=== PATIENT | female | born 1960 | race Caucasian/White ===

== ENCOUNTER 2022-08-18 13:31 | Outpatient (CLI) | payer BC, SELFPAY ==
--- NOTE | 2022-08-18 13:45 | MR_ITS ---
[address] [address] Phone:?[phone] Fax:?[phone] Referring Physician Information: Danielle Glez M.D. [address] [facility] [address] Phone:?[phone] Fax:?[phone] Patient:Rosie Mina D.O.B:?1960 Sex:?Female Phone:?[phone] [facility] MRN:?[id number] Exam Date:?08/18/2022 ? EXAM: MRI of the RIGHT KNEE, without contrast CLINICAL INFORMATION: Female, 61 years old, with right knee pain. INDICATION: Evaluate knee pain. PRIOR SURGERY: None reported. PLAIN FILMS: None available. COMPARISONS: No prior MRIs available. TECHNICAL INFORMATION: Using a 1.5T MR scanner and a localizing surface coil: sagittals: PD, PDFS coronals: PD, T2FS axials: PD, PDFS SEDATION: None CONTRAST: None FINDINGS: Knee joint: Effusion: Moderate right knee effusion, with synovitis. Popliteal cyst: None. Loose bodies: Multiple (approximately 5) ossific intra-articular bodies are visualized throughout the knee joint, largest of which is located anteriorly near the intercondylar notch measuring 1.3 x 0.6 x 0.9 cm (coronal PD series 7 image 15 and sagittal PD series 5 image 14). Subcutaneous and extra-articular soft tissues: Unremarkable. Ligaments: ACL: Intact ACL anteromedial and posterolateral bundles, without sprain or tear. PCL: Intact PCL, without acute or chronic injury. MCL: Intact MCL superficial and deep layers, without injury. LCL: Intact LCL, without injury. Posterolateral corner: No posterolateral corner soft tissue injury. Popliteus, biceps femoris, iliotibial band, popliteofibular ligament and lateral gastrocnemius are intact. Posteromedial corner: Mild semimembranosus tendinopathy, without tear. Pes anserine tendons and posterior oblique ligament are without injury, tendinopathy or bursitis. Extensor mechanism: Patellar tendon: Intact, without tendinopathy. Quadriceps tendon: Intact, without tendinopathy. Retinacula: Medial and lateral retinacula are intact. Fat pads: Unremarkable infrapatellar Hoffa's, quadriceps and prefemoral fat pads. Medial compartment: Medial meniscus: No articular surface, meniscosynovial junction or root tear. No displacement, extrusion or parameniscal cyst. Medial femoral condyle & tibial plateau: Minimal signal heterogeneity, surface irregularity, and thinning of the articular cartilage without full-thickness chondral loss or reactive osseous changes. Lateral compartment: Lateral meniscus: No articular surface, meniscosynovial junction or root tear. No displacement, extrusion or parameniscal cyst. Lateral femoral condyle: No chondromalacia or osteochondral abnormality. Lateral tibial plateau: Approximately 1.1 x 0.8 cm area of grade II/III chondromalacia of the central aspect of the lateral tibial plateau, without reactive osseous changes (sagittal PD series 5 image 12 and coronal STIR series 8 image 20). Patellofemoral joint: Patella: Generalized grade III/IV chondromalacia of the patella, with moderate marginal osteophytosis and mild reactive osseous changes. Trochlea: Generalized grade III/IV chondromalacia of the lateral facet and central sulcus of the trochlea, with moderate marginal osteophytosis and mild reactive osseous changes. Proximal tibiofibular joint: Unremarkable, without evidence of ligament sprain injury, joint effusion or adjacent marrow edema. Bones: No stress/occult fractures or other marrow edema/pathology. IMPRESSION: 1. Moderate-advanced osteoarthritis of the patellofemoral compartment. 2. Moderate knee joint effusion with multiple (approximately 5) ossific intra- articular bodies, the largest of which is located anteriorly near the intercondylar notch measuring 1.3 x 0.6 x 0.9 cm. 3. Medium-sized area of grade II/III chondromalacia of the lateral tibial plateau. 4. Mild semimembranosus tendinopathy, without tear. 5. No cruciate or collateral ligament sprain/tear. 6. No medial or lateral meniscal tear. 7. No significant osteochondral abnormality of the medial compartment. BC Electronically signed on 08/19/2022 7:12:00 AM by Jose Lacy M.D.
== END 2022-08-18 13:32 | disposition home or self-care (01) ==
LOC: MRI 13:35
PROVIDERS: PCP Family Medicine; Visit Provider Family Medicine
DX: M25.561 Pain in right knee (principal); M17.11 Unilateral primary osteoarthritis, right knee; M25.461 Effusion, right knee
CPT/HCPCS: 73721